=== PATIENT | female | born 1955 | race Caucasian/White ===

== ENCOUNTER → 2024-08-27 12:01 | Outpatient (REF) | payer MEDICARE, OTHER, SELFPAY | LOC: HWRAD 12:01 | PROVIDERS: ATTENDING PHYSICIAN Internal Medicine Pulmonary Disease; FAMILY PHYSICIAN Internal Medicine | DX: J32.9 Chronic sinusitis, unspecified (principal); J47.9 Bronchiectasis, uncomplicated | CPT/HCPCS: 70486; 71250 ==

== ENCOUNTER → 2025-01-09 15:12 | Outpatient (REF) | payer MEDICARE, OTHER, SELFPAY | LOC: HWRAD 15:12 | PROVIDERS: ATTENDING PHYSICIAN Internal Medicine Endocrinology, Diabetes & Metabolism; FAMILY PHYSICIAN Internal Medicine | DX: Z85.850 Personal history of malignant neoplasm of thyroid (principal); R09.82 Postnasal drip | CPT/HCPCS: 76536 ==